=== PATIENT | male | born 1970 | race Caucasian/White ===

== ENCOUNTER 2018-05-07 21:36 | Emergency (ER) | payer OTHER ==
[~2018-05-07] VITALS: Ht 188 cm; Wt 90.7 kg
[~2018-05-07 21:36] MED LIST: ACET325 PO; Bactrim 400-801 EACH PO; Bactrim Ds Tab1 EACH PO; CEPH500 PO; Cleocin HCl150 MG PO; DOXY100 PO; GABA100 PO; HUMALOG PUMP; HYDACE10B PO; HYDR1TAB94 PO; INSDET100 SC; INSLI100I SC; INSUASPI; INSULANPEN; INSULIN PEN NE1 EACH UD; LIDO700A20 TOP; Lantus100 UNIT/1 SC; Norco 5-325 Ta1 EACH PO; OXYACE5T PO; One Touch Ultr1 EACH UD; PROM25 PO; Prinivil10 MG PO; ROXICODONE5 MG PO; Ultram50 MG PO
== END 2018-05-07 23:04 | disposition home or self-care (01) ==
LOC: ER 21:36
DX: S51.812A Laceration without foreign body of left forearm, initial encounter (principal); E11.9 Type 2 diabetes mellitus without complications; F17.210 Nicotine dependence, cigarettes, uncomplicated; Z79.899 Other long term (current) drug therapy; Z79.4 Long term (current) use of insulin; Z96.41 Presence of insulin pump (external) (internal); W26.8XXA Contact with other sharp object(s), not elsewhere classified, initial encounter; Y93.H3 Activity, building and construction; Y99.0 Civilian activity done for income or pay
CPT/HCPCS: 12002; 99282

== ENCOUNTER 2021-05-10 06:13 | Day surgery (SDC) | payer OTHER ==
[~2021-05-10] VITALS: Ht 188 cm; Wt 98.4 kg
[2021-05-10] MEDS ORDERED: LOSA25 PO (07:03)
[2021-05-10] MEDS ORDERED: PREG75 PO (07:03)
[2021-05-10] MEDS ORDERED: TRAZ50 PO (07:04)
[2021-05-10] MEDS ORDERED: SILDENAFIL20 MG (07:04)
--- NOTE | 2021-05-10 08:16 | NUR ---
05/10/21 0816 Jud Beckford NO SPECIMEN PER DR. AMINAH M.D. RBVO Masha BECKFORD RN.
== END 2021-05-10 10:27 | disposition home or self-care (01) ==
LOC: ORSCSDS 06:13
PROVIDERS: Surgery
PROC: 0YU60JZ Supplement Left Inguinal Region with Synthetic Substitute, Open Approach (ICD-10-PCS; principal; 2021-05-10 07:30)
DX: K40.90 Unilateral inguinal hernia, without obstruction or gangrene, not specified as recurrent (principal); I10 Essential (primary) hypertension; E10.8 Type 1 diabetes mellitus with unspecified complications; K21.9 Gastro-esophageal reflux disease without esophagitis; F41.9 Anxiety disorder, unspecified; Z79.4 Long term (current) use of insulin; Z79.899 Other long term (current) drug therapy; F17.210 Nicotine dependence, cigarettes, uncomplicated
CPT/HCPCS: 82947; A9270; C1781; J0690; J1100; J1885; J2250; J2405; J2704; J3010; J7120

== ENCOUNTER 2024-03-11 17:11 | Emergency (ER) | payer OTHER ==
[~2024-03-11] VITALS: Ht 188 cm; Wt 97.5 kg
[~2024-03-11 17:11] MED LIST changes: +LOSA25 PO; +PREG75 PO; +SILDENAFIL20 MG; +TRAZ50 PO
[2024-03-11 17:47] LABS: BASOPHILS ABSOLUTE AUTO 0.05 K/mm3 (0.00-0.23); BASOPHILS PERCENT AUTO 1 % (0-2); EOSINOPHILS ABSOLUTE AUTO 0.13 K/mm3 (0.00-0.68); EOSINOPHILS PERCENT AUTO 2 % (0-6); Hematocrit 41.6 % (37.0-53.0); Hemoglobin 14.3 g/dL (13.5-17.5); IMMATURE GRAN ABSOLUTE AUTO 0.02 K/mm3 (0.00-0.10); IMMATURE GRAN PERCENT AUTO 0 % (0-1); LYMPHOCYTES ABSOLUTE AUTO 1.57 K/mm3 (0.84-5.20); LYMPHOCYTES PERCENT AUTO 19 % (21-46); MONOCYTES PERCENT AUTO 12 % (4-13); Mean Corpuscular HGB 31.1 pg (26.0-34.0); Mean Corpuscular HGB Conc 34.4 g/dL (31.5-36.5); Mean Corpuscular Volume 90 fL (80-100); Mean Platelet Volume 9.6 fL (9.1-12.4); NEUTROPHILS ABSOLUTE AUTO 5.44 K/mm3 (1.96-9.15); NEUTROPHILS PERCENT AUTO 66 % (41-73); Platelet Count 241 K/mm3 (150-400); RDW Coefficient Variation 12.3 % (11.7-14.2); RDW Standard Deviation 40.6 fL (35.1-46.3); White Blood Cell Count 8.21 K/mm3 (4.00-11.30)
[2024-03-11] MEDS ORDERED: Lactated Ringer's 1,000 ML IV ONE (17:55)
[2024-03-11] MEDS ORDERED: PANTOPRAZOLE SO40 M2 PO (17:57)
[2024-03-11] MEDS ORDERED: SILDENAFIL CITR20 M1 PO (17:58)
[2024-03-11] MEDS ORDERED: TRAZ100 PO (17:59)
[2024-03-11 18:09] LABS: Albumin, Blood 3.8 g/dL (3.4-5.0); Albumin/Globulin Ratio 1.2 (0.8-1.8); Bilirubin, Total 0.4 mg/dL (0.1-1.0); Calcium, Blood 9.2 mg/dL (8.5-10.1); Globulin, Blood 3.3 g/dL (2.2-4.0); Potassium, Blood 4.5 mmol/L (3.5-5.5); Total Protein, Blood 7.1 g/dL (6.4-8.2)
[2024-03-11 20:30] VITALS: BP 168/105
[2024-03-11] MEDS ORDERED: Aspirin 325 MG Tab PO ONE (20:40)
[2024-03-11] MEDS ORDERED: ATOR40TA PO (20:42)
[2024-03-11] MEDS ORDERED: Atorvastatin 10 MG Tab PO ONE (20:45)
== END 2024-03-11 20:55 | disposition home or self-care (01) ==
LOC: ER 17:11
PROVIDERS: Emergency Medicine
DX: G45.9 Transient cerebral ischemic attack, unspecified (principal); E11.9 Type 2 diabetes mellitus without complications; Z87.891 Personal history of nicotine dependence; Z79.4 Long term (current) use of insulin; Z79.899 Other long term (current) drug therapy
CPT/HCPCS: 70450; 80053; 83690; 84484; 85025; 93005; 93010; 93880; 99285-25; A9270; J7120

== ENCOUNTER 2024-07-23 11:21 | Day surgery (SDC) | payer OTHER ==
[~2024-07-23] VITALS: Ht 188 cm; Wt 100.2 kg
[~2024-07-23 11:21] MED LIST changes: +ATOR40TA PO; +Lactated Ringer's 1,000 ML IV ONE; +PANTOPRAZOLE SO40 M2 PO; +SILDENAFIL CITR20 M1 PO; +TRAZ100 PO
[2024-07-23] MEDS ORDERED: NOVOLOG100 UNIT/3 (11:49)
[2024-07-23] MEDS ORDERED: Lactated Ringer's 1,000 ML IV ONE (12:50)
[2024-07-23] MEDS ORDERED: propofoL 50 ML IV ONE ×2 (13:00→13:11)
[2024-07-23 14:01] VITALS: BP 120/90
== END 2024-07-23 14:05 | disposition home or self-care (01) ==
LOC: ORSCSDS 11:21
PROVIDERS: Surgery
PROC: 0DB68ZX Excision of Stomach, Via Natural or Artificial Opening Endoscopic, Diagnostic (ICD-10-PCS; principal; 2024-07-23 13:00)
PROC: 0DB48ZX Excision of Esophagogastric Junction, Via Natural or Artificial Opening Endoscopic, Diagnostic (ICD-10-PCS; principal; 2024-07-23 13:00)
PROC: 0DJD8ZZ Inspection of Lower Intestinal Tract, Via Natural or Artificial Opening Endoscopic (ICD-10-PCS; principal; 2024-07-23 13:00)
DX: K21.00 Gastro-esophageal reflux disease with esophagitis, without bleeding (principal); Z12.11 Encounter for screening for malignant neoplasm of colon; F41.9 Anxiety disorder, unspecified; E10.8 Type 1 diabetes mellitus with unspecified complications; Z96.41 Presence of insulin pump (external) (internal); I10 Essential (primary) hypertension; Z79.4 Long term (current) use of insulin; Z87.891 Personal history of nicotine dependence; Z79.899 Other long term (current) drug therapy
CPT/HCPCS: 43239; G0121; 82947; 88305; 88312; 88342; J2704; J7120